=== PATIENT | male | born 1945 | race Caucasian/White ===

== ENCOUNTER 2016-10-24 07:46 | Inpatient (IN) | payer MEDICARE ==
--- NOTE | ~2016-10-24 | DS ---
Discharge Summary [facility] [address] [facility] [place] [address] NAME: DOMENICO GONZALEZ : 43 STATUS : DIS IN PAT#: [id number] AGE: 71 ADM/REG DATE : 10/24/16 MR#: [id number] REPORT SERV DATE: 11/12/16 DICTATED BY: JOSE WALLS DATE: 11/11/16 REPORT STATUS : Draft TRANSCRIBED BY: IGNACIO DATE: 11/11/16 Data Collection from hospitalization DISCHARGE DIAGNOSES: 1. Anterior myocardial infarction. 2. Acute systolic congestive heart failure. 3. Hypertension. 4. Mixed hyperlipidemia. 5. Likely chronic obstructive pulmonary disease. 6. Tobacco use. CONSULTATIONS: None. PROCEDURES PERFORMED: Cardiac catheterization and percutaneous coronary intervention on 10/24/2016. MEDICATIONS: 1. Aspirin 81 mg daily. 2. Lipitor 80 mg at bedtime. 3. Bumex 1 mg twice a day. 4. Coreg 6.25 mg twice a day. 5. Zyrtec 10 mg daily. 6. Plavix 75 mg daily. 7. Lovenox 80 mg subcutaneously twice a day. 8. Prevacid 15 mg daily. 9. Prinivil 2.5 mg daily. 10.Nitrostat 0.4 mg sublingually as needed. 11.Aldactone 25 mg daily. 12.Pepcid AC 10 mg daily. 13.Coumadin 6 mg daily. He was instructed not to continue Pepcid. CONDITION AT DISCHARGE: Stable. DISPOSITION: The patient was discharged home to be followed by Home Health Care on a low- cholesterol, low-sodium, 1800-calorie diabetic diet with activities as instructed. He would follow up with Dr. Nash Zhang on 11/26/2016. He would follow up in the [facility] at [place] on 11/01/2016. He would follow up with his primary care provider as needed. HOSPITAL COURSE: This is a 71-year-old man who had been having chest pain that started prior to this admission while mowing his lawn. The pain was coming and going. This pain was more or less continuous for about 14 hours and was described as pressure. In the emergency room he received a nitroglycerin and relieved this pain, and did not have any further chest pain. His initial troponin and CPKs were both remarkably elevated. Chest x- ray revealed heart failure. EKG revealed Q-waves in the anteroseptal leads. Echocardiogram revealed anteroseptal infarct with ejection fraction of approximately 35%. He is a long time smoker, but denied diabetes or other problems. He said he had a dry productive cough Discharge Summary [place] [id number] [place]. [address] NAME: DOMENICO GONZALEZ : 43 STATUS : DIS IN PAT#: [id number] AGE: 71 ADM/REG DATE : 10/24/16 MR#: [id number] REPORT SERV DATE: 11/12/16 DICTATED BY: JOSE WALLS DATE: 11/11/16 REPORT STATUS : Draft TRANSCRIBED BY: IGNACIO DATE: 11/11/16 throughout the years. It was felt that he would need to undergo a cardiac catheterization as he was felt to have had a late presentation anterior myocardial infarction. He was admitted to the hospital at this time for further evaluation and treatment. Upon admission, he was taken to the cardiac paint laboratory technician where he underwent the above-mentioned procedure. He tolerated this well, and there were no complications. The following day the intraaortic balloon pump was removed. He denied chest pain or shortness of breath. It was felt that he may need a LifeVest at discharge. On 10/26/2016 he had an episode of atrial fibrillation/rapid ventricular response, he spontaneously converted with esmolol. He was chest pain free. He did complain of shortness of breath, orthopnea, and a productive cough with whitish sputum. Chest x-ray showed moderate pulmonary edema. The patient does have acute systolic congestive heart failure. Aspirin and atorvastatin were continued. Beta- cinthia was held. IV Bumex was started. Lovenox was started. The next day, he appears to be improving. He still had a cough productive of pinkish sputum. His shortness of breath had improved overall. Left ventricular ejection fraction was 30-35%. On echocardiogram, there was positive left ventricular apical thrombus. Aspirin and atorvastatin were continued. We would consider starting low-dose carvedilol as he could tolerate this. H and H remained stable. Coumadin was going to be started. Lovenox was continued as well as Bumex. RACHEAL inhibitor would be added when appropriate. Aldactone was continued. Carvedilol was started. We were considering placing a LifeVest at the time of discharge. His dyspnea was improving. He felt well. Brilinta was changed to Plavix. Lisinopril was added. Over the next couple of days, he continued to do well. He was in a normal sinus rhythm. Discharge planning was performed. On 10/30/2016, he said he felt well. LifeVest was being fitted. He was changed to oral Bumex. Proton pump inhibitor was added. Discharge instructions were given. Due to his improved and stable condition, he was discharged home to be followed by home health care with the above-stated instructions. Information collected by: Jenny Mccall I submit the above information as my discharge summary. TG/MODL Jose Walls MD / [id number] CC: MD Leo Loya MD
[2016-10-24] MEDS ORDERED: PEPCID AC (11:13)
[2016-10-24] MEDS ORDERED: ZYRTEC ALLGY10 MG PO (11:14)
[2016-10-24 17:23] LABS: BASOPHILS 0.4 %; BASOPHILS ABSOLUTE 0.05 10/3/uL (0.0-0.16); EOSINOPHILS 2.1 %; EOSINOPHILS ABSOLUTE 0.24 10/3/uL (0.0-0.53); HEMATOCRIT 41.1 % (40.0-51.0); HEMOGLOBIN 13.5 g/dL (13.6-17.8); IMMATURE GRANULOCYTES 0.2 %; IMMATURE GRANULOCYTES ABSOLUTE 0.02 10/3/uL (0.0-0.11); MEAN CORPUS HGB CONC 32.8 g/dL (32.0-36.0); MEAN CORPUSCULAR HEMOGLOB 29.9 pg (26.0-34.0); MEAN CORPUSCULAR VOLUME 91.1 fL (80-100); MEAN PLATELET VOLUME 10.9 fL (9.2-13.0); MONOCYTES 11.9 %; MONOCYTES ABSOLUTE 1.34 10/3/uL (0.21-1.20); NEUTROPHILS 62.4 %; NEUTROPHILS ABSOLUTE 7.05 10/3/uL (2.02-8.40); PLATELET COUNT 219 10/3/uL (150-400); RED CELL COUNT 4.51 10/6/uL (4.7-6.1); WHITE BLOOD CELLS 11.3 10/3/uL (4.5-10.5)
[2016-10-24 17:26] LABS: MANUAL DIFF NO %
[2016-10-24 17:39] LABS: BUN (BLOOD UREA NITROGEN) 18 MG/DL (6-23); CALCIUM, SERUM 7.9 MG/DL (8.5-10.4); CHLORIDE, SERUM 102 MMOL/L (96-112); CHOL/HDL RATIO(NOT ORDER) 5.2 (0-5); CHOLESTEROL 167 MG/DL (< 200); CK-MB 32.3 NG/ML; CO2 (CARBON DIOXIDE) 30 MMOL/L (24-34); CPK 887 U/L (0-200); CREATININE 1.01 MG/DL (0.70-1.30); GFR AFRICAN AMERICAN 86 ML/MIN (>=60); GFR NON AFRICAN AMERICAN 74 ML/MIN (>=60); GLUCOSE, SERUM 64 MG/DL (60-99); HDL CHOLESTEROL 32 MG/DL (> 39); LDL CHOLESTEROL 113 MG/DL (< 130); NON-HDL CHOLESTEROL 135 MG/DL (< 160); POTASSIUM, SERUM 3.7 MMOL/L (3.5-5.3); SODIUM, SERUM 141 MMOL/L (135-148); TRIGLYCERIDE 114 MG/DL (< 150)
[2016-10-24 17:41] LABS: CKMB INDEX (NOT ORD) 3.6
[2016-10-25 05:14] LABS: BASOPHILS 0.2 %; BASOPHILS ABSOLUTE 0.03 10/3/uL (0.0-0.16); EOSINOPHILS 0.7 %; HEMATOCRIT 42.3 % (40.0-51.0); HEMOGLOBIN 14.2 g/dL (13.6-17.8); IMMATURE GRANULOCYTES 0.3 %; IMMATURE GRANULOCYTES ABSOLUTE 0.04 10/3/uL (0.0-0.11); LYMPHOCYTES 11.8 %; LYMPHOCYTES ABSOLUTE 1.62 10/3/uL (0.67-4.30); MEAN CORPUS HGB CONC 33.6 g/dL (32.0-36.0); MEAN CORPUSCULAR HEMOGLOB 30.5 pg (26.0-34.0); MEAN PLATELET VOLUME 10.7 fL (9.2-13.0); MONOCYTES 11.3 %; MONOCYTES ABSOLUTE 1.55 10/3/uL (0.21-1.20); NEUTROPHILS 75.7 %; NEUTROPHILS ABSOLUTE 10.41 10/3/uL (2.02-8.40); PLATELET COUNT 229 10/3/uL (150-400); RED CELL COUNT 4.65 10/6/uL (4.7-6.1); WHITE BLOOD CELLS 13.8 10/3/uL (4.5-10.5)
[2016-10-25 05:19] LABS: PARTIAL THROMBO TIME 43.4 SEC (22.5-37.2)
[2016-10-25 05:27] LABS: MANUAL DIFF NO %
[2016-10-25 05:30] LABS: A/G RATIO 0.6 (0.7-1.9); ALBUMIN 2.8 G/DL (3.5-5.0); ALKALINE PHOSPHATASE 98 U/L (45-117); BUN (BLOOD UREA NITROGEN) 19 MG/DL (6-23); CALCIUM, SERUM 8.4 MG/DL (8.5-10.4); CHLORIDE, SERUM 100 MMOL/L (96-112); CK-MB 13.1 NG/ML; CO2 (CARBON DIOXIDE) 27 MMOL/L (24-34); CPK 577 U/L (0-200); CREATININE 1.07 MG/DL (0.70-1.30); GFR AFRICAN AMERICAN 80 ML/MIN (>=60); GFR NON AFRICAN AMERICAN 69 ML/MIN (>=60); GLOBULIN 4.4 G/DL (2.5-4.1); POTASSIUM, SERUM 3.7 MMOL/L (3.5-5.3); SGPT(ALT) 46 U/L (5-65); SODIUM, SERUM 135 MMOL/L (135-148); TOTAL BILIRUBIN 0.8 MG/DL (0-1.2); TOTAL PROTEIN 7.2 G/DL (6.0-8.5)
[2016-10-25 05:35] LABS: CKMB INDEX (NOT ORD) 2.3; GLUCOSE, SERUM 97 MG/DL (60-99); SGOT(AST) 140 U/L (5-40)
[2016-10-26 04:08] LABS: BASOPHILS 0.3 %; BASOPHILS ABSOLUTE 0.03 10/3/uL (0.0-0.16); EOSINOPHILS 1.8 %; EOSINOPHILS ABSOLUTE 0.21 10/3/uL (0.0-0.53); HEMATOCRIT 39.6 % (40.0-51.0); HEMOGLOBIN 13.2 g/dL (13.6-17.8); IMMATURE GRANULOCYTES 0.3 %; IMMATURE GRANULOCYTES ABSOLUTE 0.03 10/3/uL (0.0-0.11); LYMPHOCYTES 13.6 %; LYMPHOCYTES ABSOLUTE 1.59 10/3/uL (0.67-4.30); MANUAL DIFF NO %; MEAN CORPUS HGB CONC 33.3 g/dL (32.0-36.0); MEAN CORPUSCULAR HEMOGLOB 29.9 pg (26.0-34.0); MEAN CORPUSCULAR VOLUME 89.8 fL (80-100); MEAN PLATELET VOLUME 10.4 fL (9.2-13.0); MONOCYTES 12.9 %; MONOCYTES ABSOLUTE 1.51 10/3/uL (0.21-1.20); NEUTROPHILS 71.1 %; NEUTROPHILS ABSOLUTE 8.36 10/3/uL (2.02-8.40); PLATELET COUNT 225 10/3/uL (150-400); RBC DISTRIBUTION WIDTH 13.6 % (12.0-16.0); RED CELL COUNT 4.41 10/6/uL (4.7-6.1); WHITE BLOOD CELLS 11.7 10/3/uL (4.5-10.5)
[2016-10-26 04:22] LABS: BUN (BLOOD UREA NITROGEN) 22 MG/DL (6-23); CALCIUM, SERUM 8.1 MG/DL (8.5-10.4); CHLORIDE, SERUM 102 MMOL/L (96-112); CO2 (CARBON DIOXIDE) 28 MMOL/L (24-34); CREATININE 0.94 MG/DL (0.70-1.30); GFR AFRICAN AMERICAN 94 ML/MIN (>=60); GFR NON AFRICAN AMERICAN 81 ML/MIN (>=60); GLUCOSE, SERUM 89 MG/DL (60-99); POTASSIUM, SERUM 4.1 MMOL/L (3.5-5.3); SODIUM, SERUM 136 MMOL/L (135-148)
[2016-10-27 04:28] LABS: BASOPHILS 0.2 %; BASOPHILS ABSOLUTE 0.02 10/3/uL (0.0-0.16); EOSINOPHILS 4.4 %; HEMATOCRIT 41.4 % (40.0-51.0); HEMOGLOBIN 13.8 g/dL (13.6-17.8); IMMATURE GRANULOCYTES 0.4 %; IMMATURE GRANULOCYTES ABSOLUTE 0.04 10/3/uL (0.0-0.11); LYMPHOCYTES 11.5 %; MEAN CORPUS HGB CONC 33.3 g/dL (32.0-36.0); MEAN CORPUSCULAR HEMOGLOB 29.9 pg (26.0-34.0); MEAN CORPUSCULAR VOLUME 89.8 fL (80-100); MEAN PLATELET VOLUME 10.5 fL (9.2-13.0); MONOCYTES 14.2 %; MONOCYTES ABSOLUTE 1.61 10/3/uL (0.21-1.20); NEUTROPHILS 69.3 %; NEUTROPHILS ABSOLUTE 7.88 10/3/uL (2.02-8.40); PLATELET COUNT 252 10/3/uL (150-400); RBC DISTRIBUTION WIDTH 13.5 % (12.0-16.0); RED CELL COUNT 4.61 10/6/uL (4.7-6.1); WHITE BLOOD CELLS 11.4 10/3/uL (4.5-10.5)
[2016-10-27 04:32] LABS: MANUAL DIFF NO %
[2016-10-27 04:47] LABS: BUN (BLOOD UREA NITROGEN) 17 MG/DL (6-23); CALCIUM, SERUM 8.5 MG/DL (8.5-10.4); CHLORIDE, SERUM 97 MMOL/L (96-112); CO2 (CARBON DIOXIDE) 29 MMOL/L (24-34); CREATININE 1.08 MG/DL (0.70-1.30); GFR AFRICAN AMERICAN 79 ML/MIN (>=60); GFR NON AFRICAN AMERICAN 68 ML/MIN (>=60); GLUCOSE, SERUM 109 MG/DL (60-99); SODIUM, SERUM 132 MMOL/L (135-148)
[2016-10-27 16:57] LABS: INTERNATIONAL NORMAL RATI 1.1 UNITS (-); PROTIME (NOT ORD) 14.3 SEC (12.0-14.5)
[2016-10-27 16:58] LABS: BUN (BLOOD UREA NITROGEN) 18 MG/DL (6-23); CALCIUM, SERUM 8.6 MG/DL (8.5-10.4); CHLORIDE, SERUM 97 MMOL/L (96-112); CO2 (CARBON DIOXIDE) 28 MMOL/L (24-34); CREATININE 0.99 MG/DL (0.70-1.30); GFR AFRICAN AMERICAN 88 ML/MIN (>=60); GFR NON AFRICAN AMERICAN 76 ML/MIN (>=60); GLUCOSE, SERUM 94 MG/DL (60-99); PHOSPHORUS, SERUM 3.5 MG/DL (2.5-4.5); POTASSIUM, SERUM 3.9 MMOL/L (3.5-5.3); SODIUM, SERUM 131 MMOL/L (135-148)
[2016-10-28 04:25] LABS: BASOPHILS 0.3 %; BASOPHILS ABSOLUTE 0.03 10/3/uL (0.0-0.16); EOSINOPHILS 7.7 %; EOSINOPHILS ABSOLUTE 0.79 10/3/uL (0.0-0.53); HEMATOCRIT 43.2 % (40.0-51.0); HEMOGLOBIN 15.1 g/dL (13.6-17.8); IMMATURE GRANULOCYTES 0.4 %; IMMATURE GRANULOCYTES ABSOLUTE 0.04 10/3/uL (0.0-0.11); LYMPHOCYTES 12.7 %; MEAN CORPUSCULAR HEMOGLOB 30.6 pg (26.0-34.0); MEAN CORPUSCULAR VOLUME 87.4 fL (80-100); MEAN PLATELET VOLUME 10.4 fL (9.2-13.0); MONOCYTES 15.1 %; MONOCYTES ABSOLUTE 1.55 10/3/uL (0.21-1.20); NEUTROPHILS 63.8 %; NEUTROPHILS ABSOLUTE 6.54 10/3/uL (2.02-8.40); PLATELET COUNT 281 10/3/uL (150-400); RBC DISTRIBUTION WIDTH 13.3 % (12.0-16.0); RED CELL COUNT 4.94 10/6/uL (4.7-6.1); WHITE BLOOD CELLS 10.3 10/3/uL (4.5-10.5)
[2016-10-28 04:31] LABS: MANUAL DIFF NO %
[2016-10-28 04:43] LABS: INTERNATIONAL NORMAL RATI 1.1 UNITS (-); PROTIME (NOT ORD) 14.3 SEC (12.0-14.5)
[2016-10-28 04:44] LABS: BUN (BLOOD UREA NITROGEN) 19 MG/DL (6-23); CALCIUM, SERUM 9.2 MG/DL (8.5-10.4); CHLORIDE, SERUM 95 MMOL/L (96-112); CO2 (CARBON DIOXIDE) 27 MMOL/L (24-34); CREATININE 1.08 MG/DL (0.70-1.30); GFR AFRICAN AMERICAN 79 ML/MIN (>=60); GFR NON AFRICAN AMERICAN 68 ML/MIN (>=60); GLUCOSE, SERUM 97 MG/DL (60-99); POTASSIUM, SERUM 3.8 MMOL/L (3.5-5.3); SODIUM, SERUM 131 MMOL/L (135-148)
[2016-10-28 08:50] LABS: PHOSPHORUS, SERUM 3.9 MG/DL (2.5-4.5)
[2016-10-29 04:41] LABS: BASOPHILS 0.4 %; BASOPHILS ABSOLUTE 0.04 10/3/uL (0.0-0.16); EOSINOPHILS 9.1 %; EOSINOPHILS ABSOLUTE 0.91 10/3/uL (0.0-0.53); HEMATOCRIT 43.5 % (40.0-51.0); IMMATURE GRANULOCYTES 0.2 %; IMMATURE GRANULOCYTES ABSOLUTE 0.02 10/3/uL (0.0-0.11); LYMPHOCYTES 14.7 %; LYMPHOCYTES ABSOLUTE 1.47 10/3/uL (0.67-4.30); MANUAL DIFF NO %; MEAN CORPUS HGB CONC 34.5 g/dL (32.0-36.0); MEAN CORPUSCULAR HEMOGLOB 30.3 pg (26.0-34.0); MEAN CORPUSCULAR VOLUME 87.9 fL (80-100); MEAN PLATELET VOLUME 10.2 fL (9.2-13.0); MONOCYTES 14.9 %; MONOCYTES ABSOLUTE 1.49 10/3/uL (0.21-1.20); NEUTROPHILS 60.7 %; PLATELET COUNT 327 10/3/uL (150-400); RBC DISTRIBUTION WIDTH 13.2 % (12.0-16.0); RED CELL COUNT 4.95 10/6/uL (4.7-6.1)
[2016-10-29 04:47] LABS: INTERNATIONAL NORMAL RATI 1.2 UNITS (-); PROTIME (NOT ORD) 14.9 SEC (12.0-14.5)
[2016-10-29 04:53] LABS: CALCIUM, SERUM 8.9 MG/DL (8.5-10.4); CHLORIDE, SERUM 97 MMOL/L (96-112); CO2 (CARBON DIOXIDE) 26 MMOL/L (24-34); CREATININE 1.03 MG/DL (0.70-1.30); GFR AFRICAN AMERICAN 84 ML/MIN (>=60); GFR NON AFRICAN AMERICAN 72 ML/MIN (>=60); GLUCOSE, SERUM 110 MG/DL (60-99); POTASSIUM, SERUM 3.9 MMOL/L (3.5-5.3); SODIUM, SERUM 131 MMOL/L (135-148)
[2016-10-29 04:55] LABS: BUN (BLOOD UREA NITROGEN) 28 MG/DL (6-23)
[2016-10-30 05:01] LABS: BASOPHILS 0.7 %; BASOPHILS ABSOLUTE 0.07 10/3/uL (0.0-0.16); EOSINOPHILS 7.4 %; EOSINOPHILS ABSOLUTE 0.74 10/3/uL (0.0-0.53); HEMATOCRIT 42.9 % (40.0-51.0); HEMOGLOBIN 14.6 g/dL (13.6-17.8); IMMATURE GRANULOCYTES 0.2 %; IMMATURE GRANULOCYTES ABSOLUTE 0.02 10/3/uL (0.0-0.11); LYMPHOCYTES 21.4 %; LYMPHOCYTES ABSOLUTE 2.14 10/3/uL (0.67-4.30); MANUAL DIFF NO %; MEAN CORPUSCULAR VOLUME 88.1 fL (80-100); MEAN PLATELET VOLUME 10.5 fL (9.2-13.0); MONOCYTES 10.9 %; MONOCYTES ABSOLUTE 1.09 10/3/uL (0.21-1.20); NEUTROPHILS 59.4 %; NEUTROPHILS ABSOLUTE 5.94 10/3/uL (2.02-8.40); PLATELET COUNT 370 10/3/uL (150-400); RBC DISTRIBUTION WIDTH 13.1 % (12.0-16.0); RED CELL COUNT 4.87 10/6/uL (4.7-6.1)
[2016-10-30 05:02] LABS: INTERNATIONAL NORMAL RATI 1.3 UNITS (-); PROTIME (NOT ORD) 16.2 SEC (12.0-14.5)
[2016-10-30 05:10] LABS: BUN (BLOOD UREA NITROGEN) 31 MG/DL (6-23); CALCIUM, SERUM 8.7 MG/DL (8.5-10.4); CHLORIDE, SERUM 98 MMOL/L (96-112); CO2 (CARBON DIOXIDE) 26 MMOL/L (24-34); CREATININE 1.02 MG/DL (0.70-1.30); GFR AFRICAN AMERICAN 85 ML/MIN (>=60); GFR NON AFRICAN AMERICAN 73 ML/MIN (>=60); GLUCOSE, SERUM 94 MG/DL (60-99); POTASSIUM, SERUM 4.1 MMOL/L (3.5-5.3); SODIUM, SERUM 133 MMOL/L (135-148)
[2016-10-30] MEDS ORDERED: LIPITOR80 MG PO (12:06)
[2016-10-30] MEDS ORDERED: ASAB PO (12:06)
[2016-10-30] MEDS ORDERED: COREG6 PO (12:06)
[2016-10-30] MEDS ORDERED: PLAVIX PO (12:07)
[2016-10-30] MEDS ORDERED: LOVENOX80 SC (12:08)
[2016-10-30] MEDS ORDERED: SPIRO25 PO (12:09)
[2016-10-30] MEDS ORDERED: PRIN2.5 PO (12:09)
[2016-10-30] MEDS ORDERED: COUMADIN6 MG PO (12:10)
[2016-10-30] MEDS ORDERED: BUM1 PO (12:12)
[2016-10-30] MEDS ORDERED: NITROSTAT0.4 MG SL (12:13)
[2016-10-30] MEDS ORDERED: PREV15 PO (12:13)
== END 2016-10-30 16:10 | disposition home health service (06) | DRG 270 ==
LOC: CORLMH 07:46 → SSU1 10:54 → CCU 15:36 → 6NO 10-29 12:25
PROVIDERS: Internal Medicine Cardiovascular Disease; Internal Medicine Pulmonary Disease; Nurse Practitioner Family
PROC: 5A02210 Assistance with Cardiac Output using Balloon Pump, Continuous (ICD-10-PCS; principal; 2016-10-24)
PROC: 0270346 Dilation of Coronary Artery, One Artery, Bifurcation, with Drug-eluting Intraluminal Device, Percutaneous Approach (ICD-10-PCS; 2016-10-24)
PROC: 4A023N7 Measurement of Cardiac Sampling and Pressure, Left Heart, Percutaneous Approach (ICD-10-PCS; 2016-10-24)
PROC: B2151ZZ Fluoroscopy of Left Heart using Low Osmolar Contrast (ICD-10-PCS; 2016-10-24)
PROC: B2111ZZ Fluoroscopy of Multiple Coronary Arteries using Low Osmolar Contrast (ICD-10-PCS; 2016-10-24)
PROC: 02C03Z6 Extirpation of Matter from Coronary Artery, One Artery, Bifurcation, Percutaneous Approach (ICD-10-PCS; 2016-10-24)
DX: I21.09 ST elevation (STEMI) myocardial infarction involving other coronary artery of anterior wall (principal); I50.21 Acute systolic (congestive) heart failure; R57.0 Cardiogenic shock; I11.0 Hypertensive heart disease with heart failure; J44.9 Chronic obstructive pulmonary disease, unspecified; I34.0 Nonrheumatic mitral (valve) insufficiency; I25.10 Atherosclerotic heart disease of native coronary artery without angina pectoris; E78.2 Mixed hyperlipidemia; I25.84 Coronary atherosclerosis due to calcified coronary lesion; I48.0 Paroxysmal atrial fibrillation; I25.5 Ischemic cardiomyopathy; Z72.0 Tobacco use
CPT/HCPCS: 33967; 71010; 80048; 80053; 80061; 82550; 82553; 82962; 83735; 83880; 84100; 84132; 84484; 85025; 85610; 85730; 87070; 87205; 87641; 93005; 93458; 94640; 97161-GP; 97165-GO; 99152; 99153; A9270-GY; C1725; C1757; C1769; C1874; C1887; C1894; C8929; C9606; J0583; J1170; J1652; J2250; J2370; J2405; J3010; Q9957; Q9967